=== PATIENT | male | born 1970 | race Caucasian/White ===

== ENCOUNTER 2017-08-10 15:35 | Emergency (ER) | payer OTHER ==
--- NOTE | 2017-08-10 16:01 | EDPHY ---
H & P Stated Complaint: Poss L collarbone injury from sledding Time Seen by Provider: 08/10/17 15:49 HPI/ROS: Chief Complaint: Left clavicle injury HPI: The patient presents to the ED with complaints of left clavicle pain. He fell while sledding with his family. He landed straight on his left clavicle. He did not strike his head or lose consciousness. He has no complaints of headache, neck pain, chest pain, difficulty breathing or other acute complaints. REVIEW OF SYSTEMS: Neuro: no headache, numbness, weakness Musculoskeletal: as above Skin: no abrasion or lacerations Source: Patient Exam Limitations: No limitations - Personal History Current Tetanus Diphtheria and Acellular Pertussis (TDAP): Yes - Medical/Surgical History Other PMH: healthy - Social History Smoking Status: Never smoked - Physical Exam Exam: General Appearance: Alert, no distress Head: Atraumatic Neck: Nontender, trachea midline Respiratory: Tenderness to palpation over left clavicle, no subcutaneous emphysema, lungs clear to auscultation bilaterally Cardiovascular: Regular rate and rhythm Abdomen: Abdomen is soft and nontender, pelvis stable Skin: No lacerations, No abrasion Back: No midline T/L/S pain Extremities: Nontender, full range of motion Neurological: Motor/sensory function intact throughout the right upper extremity Constitutional: Initial Vital Signs Temperature (C) 36.4 C 08/10/17 15:37 Heart Rate 72 08/10/17 15:37 Respiratory Rate 16 08/10/17 15:37 Blood Pressure 113/77 08/10/17 15:37 O2 Sat (%) 98 08/10/17 15:37 O2 Delivery Mode Room Air Allergies/Adverse Reactions: No Known Allergies Allergy (Verified 08/10/17 15:36) Home Medications: Medication Instructions Recorded oxyCODONE IR [Oxycodone Ir (*)] 5 - 10 mg PO 20 PRN #20 tab 08/10/17 Medical Decision Making - Diagnostics Imaging Results: Left clavicle x-ray: Comminuted distal left clavicle fracture. Images reviewed by myself. ED Course/Re-evaluation: The patient presents to the ED for evaluation of clavicle pain following a sledding accident. The patient has tenderness to palpation over his distal clavicle. The patient has no evidence of an open fracture. He is neurologically intact. X-ray does confirm a distal clavicle fracture. The patient will be advised to follow up with our on-call orthopedic surgeon Dr. Eddie Cardozo. The patient is noted to have a comminuted distal clavicle fracture. This may require ORIF. It is currently closed. The patient has been placed in a sling. He will be advised to use Tylenol as needed for pain. He is given a prescription for Oxy IR for breakthrough pain. Differential Diagnosis: Differential diagnosis considered includes fracture, sprain, dislocation, neurovascular injury Departure - Departure Disposition: Home, Routine, Self-Care Clinical Impression: Clavicle fracture Qualifiers: Encounter type: initial encounter Clavicle location: lateral end Fracture type : closed Fracture alignment: displaced Laterality: left Qualified Code(s): S42.032A - Displaced fracture of lateral end of left clavicle, initial encounter for closed fracture Condition: Good Instructions: Clavicle Fracture (ED) Additional Instructions: 1. Ice as directed. Tylenol as needed for pain. 2. Oxycodone as needed for severe pain. 3. Please follow up with the orthopedic surgeon, Dr. Eddie Cardozo, you have been referred to for a recheck of your fracture within the next week. Your clavicle fracture it is comminuted and displaced. It may require surgery for definitive treatment. Wear sling as needed for comfort. Referrals: Eddie Cardozo MD [Medical Doctor] - As per Instructions Prescriptions: oxyCODONE IR [Oxycodone Ir (*)] 5 - 10 mg PO 20 PRN #20 tab PRN Reason: for pain
[2017-08-10] MEDS ORDERED: OXYCODONE/APAP 5/325 TAB ONE (16:22)
[2017-08-10] MEDS ORDERED: OXYCODONE/APAP 5/325 TAB PO ONE (16:23)
[2017-08-10 16:44] VITALS: BP 126/70; PULSE 88; RESP 18; TEMP 98.2; O2SAT 97
== END 2017-08-10 16:45 | disposition home or self-care (01) ==
DX: S42.032A Displaced fracture of lateral end of left clavicle, initial encounter for closed fracture (principal); V00.221A Fall from sled, initial encounter; Y99.8 Other external cause status; Y93.23 Activity, snow (alpine) (downhill) skiing, snowboarding, sledding, tobogganing and snow tubing
CPT/HCPCS: A4565